=== PATIENT | male | born 1975 | race Caucasian/White ===

== ENCOUNTER 2018-09-10 12:03 | Emergency (ER) | payer OTHER ==
[2018-09-10] MEDS: ACETAMINOPHEN 325 MG TAB PO (14:22)
== END 2018-09-10 15:00 | disposition home or self-care (01) ==
LOC: FTE 12:03
DX: S49.92XA Unspecified injury of left shoulder and upper arm, initial encounter (principal); I10 Essential (primary) hypertension; X58.XXXA Exposure to other specified factors, initial encounter; Y92.9 Unspecified place or not applicable
CPT/HCPCS: 73080; 73080-LT; 99283-25